=== PATIENT | male | born 1960 | race Caucasian/White ===

== ENCOUNTER 2017-08-12 13:04 | Emergency (ER) | payer OTHER ==
[~2017-08-12] VITALS: Ht 175.3 cm; Wt 68.4 kg
[2017-08-12] MEDS ORDERED: LIDODERM 5% P1 PATCH TD (13:47)
[2017-08-12] MEDS ORDERED: MOTRIN800 MG PO (13:47)
[2017-08-12] MEDS ORDERED: FLEXERIL10 MG PO (13:47)
[2017-08-12 14:06] VITALS: BP 139/81
== END 2017-08-12 14:06 | disposition home or self-care (01) ==
LOC: EME 13:04
DX: G89.29 Other chronic pain (principal); M54.5 Low back pain; Z76.0 Encounter for issue of repeat prescription; F17.200 Nicotine dependence, unspecified, uncomplicated
CPT/HCPCS: 99281; 99283; J1885

== ENCOUNTER 2018-05-04 19:19 | Inpatient (IN) | payer OTHER ==
[~2018-05-04] VITALS: Ht 175.3 cm; Wt 66.7 kg
[~2018-05-04 19:19] MED LIST: FLEXERIL10 MG PO; LIDODERM 5% P1 PATCH TD; MOTRIN800 MG PO
[2018-05-04] MEDS ORDERED: GLIMEPIRIDE1 MG PO (19:37)
[2018-05-04] MEDS ORDERED: TRAMADOL HCL50 MG PO (19:38)
[2018-05-04 21:53] LABS: AMPHETAMINE NEGATIVE (500 ng/mL); BARBITURATES NEGATIVE (200 ng/mL); BENZODIAZEPINES NEGATIVE (150 ng/mL); BUPRENORPHINE NEGATIVE (10 ng/mL); COCAINE NEGATIVE (150 ng/mL); METHADONE NEGATIVE (200 ng/mL); METHAMPHETAMINE NEGATIVE (500 ng/mL); OPIATES (MORPHINE) NEGATIVE (100 ng/mL); OXYCODONE NEGATIVE (100 ng/mL); PHENCYCLIDINE NEGATIVE (25 ng/mL); PROPOXYPHENE NEGATIVE (300 ng/mL); THC CANNABINOIDS NEGATIVE (50 ng/mL); TRICYCLIC ANTIDEPRESSANTS NEGATIVE (300 ng/mL)
[2018-05-04 21:53] LABS: BASOPHIL (%) 1.2 % (0-1); BASOPHIL COUNT 0.1 K/uL (0-0.1); EOSINOPHIL (%) 0.5 % (0-5); HEMATOCRIT 49.9 % (38.0-50.0); HEMOGLOBIN 17.7 G/DL (12.5-16.6); IMMATURE GRANULOCYTE (%) 0.4 % (0.0-0.7); LYMPHOCYTE (%) 19.1 % (15-42); LYMPHOCYTE COUNT 1.5 K/uL (1.0-2.8); MCH 30.9 PG (29.0-34.0); MCHC 35.5 G/DL (30.0-36.0); MCV 87.1 FL (86-99); MONOCYTE (%) 8.8 % (3-12); MONOCYTE COUNT 0.7 K/uL (0-0.8); NEUTROPHIL COUNT 5.4 K/uL (1.8-6.4); PLATELET COUNT 202 K/uL (156-360); RBC DIS.WIDTH-CV 12.6 % (11.8-14.6); RBC DIS.WIDTH-SD 39.5 % (39-53); RED BLOOD COUNT 5.73 M/uL (4.00-5.50); WHITE BLOOD COUNT 7.8 K/uL (4.1-10.2)
[2018-05-04 22:20] LABS: ALBUMIN 4.3 g/dL (3.2-4.8); CHLORIDE 104 mEq/L (99-109); POTASSIUM 4.1 mEq/L (3.7-5.4); SODIUM 142 mEq/L (136-147)
[2018-05-04 22:23] LABS: GLUCOSE 173 mg/dL (70-99); TOTAL PROTEIN 8.7 g/dL (6.4-8.3)
[2018-05-04 22:25] LABS: TOTAL BILIRUBIN 0.7 mg/dL (0.0-1.0)
[2018-05-04 22:26] LABS: CREATININE 0.9 mg/dL (0.6-1.3); GFR ESTIMATE (CALCULATED) > 59 mL/min/ (58.99-99999); SERUM ETHYL ALCOHOL 154 mg/dL
[2018-05-04 22:27] LABS: ALKALINE PHOSPHATASE 101 IU/L (3-129)
[2018-05-04 22:28] LABS: AST (GOT) 182 IU/L (2-34); UREA NITROGEN (BUN) 13 mg/dL (9-23)
[2018-05-04 22:30] LABS: ACETAMINOPHEN (TYLENOL) < 10 mcg/mL (10-30); ALT (GPT) 275 IU/L (3-49); SALICYLATE < 5.0 MG/DL (15-30)
[2018-05-05 07:53] VITALS: BP 182/85
[2018-05-05 12:07] VITALS: BP 159/85
[2018-05-05 16:09] VITALS: BP 152/85
[2018-05-06 07:23] VITALS: BP 117/67
[2018-05-06 16:46] VITALS: BP 116/68
[2018-05-07 08:26] VITALS: BP 107/72
[2018-05-07 16:30] VITALS: BP 129/81
[2018-05-08 07:50] VITALS: BP 124/77
[2018-05-08 16:35] VITALS: BP 141/65
[2018-05-09 08:02] VITALS: BP 120/69
[2018-05-09 16:04] VITALS: BP 148/75
[2018-05-10 07:53] VITALS: BP 110/67
[2018-05-10] MEDS ORDERED: ESCITALOPRAM OX10 MG PO (08:56)
[2018-05-10] MEDS ORDERED: THERAGRAN1 TABLET PO (08:56)
[2018-05-10] MEDS ORDERED: GLIPIZIDE5 MG PO (08:56)
[2018-05-10] MEDS ORDERED: DIVALPROEX SOD500 M1 PO (08:56)
[2018-05-10] MEDS ORDERED: Thiamine,Vitamin B1 PO (08:56)
[2018-05-10] MEDS ORDERED: FAMOTIDINE20 MG PO (08:57)
== END 2018-05-10 12:07 | disposition home or self-care (01) | DRG 885 ==
LOC: EME 19:19 → 1WEST 05-05 00:33 → EDOF 05-05 00:33 → ENRESERV 05-05 01:27 → 1WEST 05-05 01:47
PROVIDERS: Emergency Medicine; Psychiatry & Neurology Psychiatry
DX: F31.4 Bipolar disorder, current episode depressed, severe, without psychotic features (principal); R45.851 Suicidal ideations; F63.81 Intermittent explosive disorder; F10.20 Alcohol dependence, uncomplicated; Y90.6 Blood alcohol level of 120-199 mg/100 ml; F60.9 Personality disorder, unspecified; E11.9 Type 2 diabetes mellitus without complications; B19.20 Unspecified viral hepatitis C without hepatic coma; F17.200 Nicotine dependence, unspecified, uncomplicated; Z59.0 Homelessness; Z79.84 Long term (current) use of oral hypoglycemic drugs
CPT/HCPCS: 80053; 80164; 82948; 85025; 90837; 97150 GO; 97165 GO; 99281; 99285; G0480